=== PATIENT | female | born 1970 | race American Indian/Alaskan Native ===

== ENCOUNTER 2017-10-02 12:16 | Outpatient (CLI) | payer OTHER ==
--- NOTE | 2017-10-06 08:55 | Mammography Report ---
BILATERAL DIGITAL SCREENING MAMMOGRAM with CAD: 10/02/17 12:16:00 CLINICAL: Routine screening. COMPARISON:10/02/15 and 09/07/15 FINDINGS: There are scattered areas of fibroglandular density.Stable left upper parenchymal asymmetries. No mass, architectural distortion or suspicious calcifications. IMPRESSION: No mammographic evidence of malignancy. BI-RADS CATEGORY: 2 -- Benign RECOMMENDATION: Routine mammographic screening in one year. COMMENT: Patient follow-up letters are generated by our [employer] network application.
== END 2017-10-02 12:17 | disposition home or self-care (01) ==
LOC: SPVWC 12:16
PROVIDERS: ATTEND Family Medicine
DX: Z12.31 Encounter for screening mammogram for malignant neoplasm of breast (principal)
CPT/HCPCS: 77067; G0202

== ENCOUNTER 2018-11-02 10:54 | Outpatient (CLI) | payer OTHER ==
--- NOTE | 2018-11-02 11:40 | Mammography Report ---
Bilateral mammogram: Compared to 10/02/15 and 10/02/17. CAD study utilized. Findings: Predominance adipose tissue bilaterally. New circumscribed 1 cm density upper inner left breast. Benign density upper outer left breast without interval change. No microcalcification. Normal axilla. Impression: New circumscribed density left breast. Recommend spot compression and sonographic examination. BI-RADS CATEGORY: 0 = Needs additional imaging evaluation ACR BI-RADS MAMMOGRAPHIC CODES: 0 = Needs additional imaging evaluation; 1 = Negative; 2 = Benign; 3 = Probably benign; 4 = Suspicious; 5 = Malignant; 6 = Known biopsy-proven malignancy COMMENT: 1. Dense breast tissue, i.e., adenosis, fibrocystic changes, etc., may obscure an underlying neoplasm. 2. Approximately 10% of cancers are not detected with mammography. 3. A negative mammography report should not delay biopsy if a clinically suspicious mass is present. COMMENT: Patient follow-up letters are generated in [employer].
== END 2018-11-02 10:55 | disposition home or self-care (01) ==
LOC: SPVWC 10:54
PROVIDERS: ATTEND Family Medicine
DX: Z12.31 Encounter for screening mammogram for malignant neoplasm of breast (principal)
CPT/HCPCS: 77067

== ENCOUNTER 2019-01-03 08:39 | Outpatient (CLI) | payer OTHER ==
--- NOTE | 2019-01-03 10:04 | Ultrasound Report ---
LEFT DIGITAL DIAGNOSTIC MAMMOGRAM and LEFT BREAST ULTRASOUND: 01/03/19 08:39:00 CLINICAL: Recalled for asymmetry. COMPARISON:11/02/18 screening FINDINGS: Lateralmedial and spot magnification MLO and CC views were performed.An irregular 1.2 cm mass persists on all views. The shape is more round on the CC view but margins are very angular on the MLO spot. Ultrasound of the left breast (including all four quadrants and the retroareolar area) was performed. An oval relatively anechoic relatively smooth mass is identified at 10 o'clock 6 cm from the nipple. It measures 1.0 x 0.9 x 0.8 cm and correlates with the mammographic mass. The wall is slightly thickened and irregular and is not perfectly smooth in all views. No other mass is identified. A benign intramammary lymph node at 2 o'clock 7 cm from the nipple measures 7 x 3 x 7 mm. It has been stable mammographically for several years. Ultrasound of the left axilla demonstrated no suspicious lymph nodes. IMPRESSION: A suspicious 1 cm complex cyst versus solid mass at 10 o'clock 6 cm from the nipple. Recommend ultrasound-guided aspiration/biopsy. BI-RADS CATEGORY: 4--Suspicious I discussed the findings and the recommendation for needle aspiration and possible biopsy with the patient at the time of the examination. ACR BI-RADS MAMMOGRAPHIC CODES: 0 = Needs additional imaging evaluation; 1 = Negative; 2 = Benign; 3 = Probably benign; 4 = Suspicious; 5 = Malignant; 6 = Known biopsy-proven malignancy COMMENT: 1. Dense breast tissue, i.e., adenosis, fibrocystic changes, etc., may obscure an underlying neoplasm. 2. Approximately 10% of cancers are not detected with mammography. 3. A negative mammography report should not delay biopsy if a clinically suspicious mass is present. COMMENT: Patient follow-up letters are generated via our [employer] application.
== END 2019-01-03 08:40 | disposition home or self-care (01) ==
LOC: SPVWC 08:39
PROVIDERS: ATTEND Family Medicine
DX: R92.8 Other abnormal and inconclusive findings on diagnostic imaging of breast (principal)

== ENCOUNTER 2019-01-18 12:23 | Outpatient (CLI) | payer OTHER ==
--- NOTE | 2019-01-18 14:19 | Mammography Report ---
LEFT DIGITAL DIAGNOSTIC MAMMOGRAM : 01/18/19 CLINICAL: Immediately status post cyst aspiration. COMPARISON:11/02/18 FINDINGS: The previous described mammographic mass has resolved. No mass, architectural distortion or suspicious calcifications. IMPRESSION: Resolution of mammographic mass with cyst aspiration.Recommend routine screening in one year. BI-RADS CATEGORY: 1 - - Negative COMMENT: Patient follow-up letters are generated by our [employer] application.
--- NOTE | 2019-01-18 14:28 | Ultrasound Report ---
ULTRASOUND ASPIRATION LEFT BREAST: 01/18/19 CLINICAL: Left breast mass. COMPARISON: 01/03/19 FINDINGS: The procedure was explained to the patient and informed consent was obtained. Ultrasound demonstrated the previously described relatively anechoic mass at 10 o'clock 6 cm from the nipple. A wall appears smoother and it is more anechoic than on the last exam. The skin was cleansed with Betadine and anesthetized with 1% lidocaine. A 20-gauge needle was introduced into the lesion with ultrasound guidance. Approximately 3cc of dark brown fluidwas removed and the lesion showed complete collapse. The fluid was discarded. The patient tolerated the procedure well and there were no apparent complications. A post procedure mammogram showed complete resolution of the previously described mass. IMPRESSION: Uncomplicated cyst aspiration left breast with resolution of the mammographic mass.
== END 2019-01-18 12:24 | disposition home or self-care (01) ==
LOC: SPVWC 12:23
PROVIDERS: ATTEND Family Medicine
DX: N63.20 Unspecified lump in the left breast, unspecified quadrant (principal)

== ENCOUNTER 2021-09-04 15:59 | Outpatient (CLI) | payer OTHER ==
--- NOTE | 2021-09-06 08:19 | Mammography Report ---
DIGITAL SCREENING MAMMOGRAM WITH CAD, 09/04/2021 CLINICAL INFORMATION / INDICATION: Routine screening mammography. SCREENING MAMMO TECHNIQUE: Digital bilateral 2D mammography was obtained in the craniocaudal and mediolateral obliqu e projections. This examination was interpreted with the benefit of Computer-Aided Detection analysis . COMPARISON: 11/02/2018 FINDINGS: Breast Density: There are scattered areas of fibroglandular density. No dominant mass, suspicious calcifications, or architectural distortion in either breast. A few scattered nodular densities are again seen in the left breast. IMPRESSION: No mammographic evidence of malignancy. Follow up recommendation: Routine yearly BI-RADS Category 2: Benign. A "normal" or negative report should not discourage follow up or biopsy of a clinically significant f inding. A written summary of these findings will be mailed to the patient. The patient will be entered into a mammography reporting system which will generate a reminder letter for the patient's next appointmen t at the appropriate interval. The [employer] recommends yearly mammograms starting at age 40 and continuing as l chasity as a woman is in good health. Breast MRI is recommended for women with an approximate 20-25% or greater lifetime risk of breast cancer, including women with a strong family history of breast or ova natasha cancer or who have been treated for Hodgkin's disease. Signer Name: Daniel Felix MD Signed: 09/06/2021 8:15 AM Workstation Name: [id number]
== END 2021-09-04 16:00 | disposition home or self-care (01) ==
LOC: SPVWC 15:59
PROVIDERS: ATTEND Family Medicine
DX: Z12.31 Encounter for screening mammogram for malignant neoplasm of breast (principal)
CPT/HCPCS: 77067